=== PATIENT | female | born 1960 | race Caucasian/White ===

== ENCOUNTER 2018-06-13 04:22 | Emergency (ER) | payer MEDICAID ==
[~2018-06-13] VITALS: Ht 154.9 cm; Wt 55.1 kg
[~2018-06-13 04:22] MED LIST: TRAM50TA2 PO
[2018-06-13 04:30] VITALS: BP 148/72
[2018-06-13] MEDS ORDERED: TETanus/Pertussis (Acell)/Diphther VAC/PF (Tdap-Adult) 0.5ml syringe IM ONE (04:40)
[2018-06-13] MEDS ORDERED: bacitracin 15gm ointment TP ONE (04:40)
[2018-06-13] MEDS ORDERED: amox tr/potassium clavulanate 875/125mg TAB PO ONE (04:40)
[2018-06-13] MEDS ORDERED: ondansetron 4mg rapidly disintigrating tab PO ONE (04:40)
[2018-06-13] MEDS ORDERED: acetaminophen 325mg tablet PO ONE (04:45)
[2018-06-13] MEDS ORDERED: ketorolac trometh inj. 60 MG/2 ML VIAL IM ONE (04:45)
[2018-06-13] MEDS ORDERED: AMOX-580 PO (05:56)
== END 2018-06-13 06:27 | disposition home or self-care (01) ==
LOC: ER 04:22
DX: S51.812A Laceration without foreign body of left forearm, initial encounter (principal); S61.412A Laceration without foreign body of left hand, initial encounter; G89.29 Other chronic pain; F12.90 Cannabis use, unspecified, uncomplicated; Z98.890 Other specified postprocedural states; Z79.2 Long term (current) use of antibiotics; Z79.899 Other long term (current) drug therapy; Z88.6 Allergy status to analgesic agent; W54.0XXA Bitten by dog, initial encounter; Y93.89 Activity, other specified; Y92.89 Other specified places as the place of occurrence of the external cause; Y99.8 Other external cause status
CPT/HCPCS: 12002; 73090; 73120; 90471; 90715; 96372; 99284; J1885

== ENCOUNTER 2019-11-06 06:22 | Emergency (ER) | payer MEDICAID ==
[~2019-11-06] VITALS: Ht 154.9 cm; Wt 54.9 kg
[2019-11-06] MEDS ORDERED: ketorolac trometh. 30mg/ml inj. IM ONE (06:40)
[2019-11-06] MEDS ORDERED: HYDROcodone/acetaminophen 5mg/325mg tablet PO ONE (06:40)
[2019-11-06] MEDS ORDERED: HYDR-3965 PO (07:21)
[2019-11-06 07:41] VITALS: BP 134/89
== END 2019-11-06 07:44 | disposition home or self-care (01) ==
LOC: ER 06:23
DX: S30.0XXA Contusion of lower back and pelvis, initial encounter (principal); G89.29 Other chronic pain; F17.210 Nicotine dependence, cigarettes, uncomplicated; F15.90 Other stimulant use, unspecified, uncomplicated; Z98.890 Other specified postprocedural states; Z88.6 Allergy status to analgesic agent; Z79.899 Other long term (current) drug therapy; X58.XXXA Exposure to other specified factors, initial encounter; Y93.89 Activity, other specified; Y92.89 Other specified places as the place of occurrence of the external cause; Y99.8 Other external cause status
CPT/HCPCS: 72100; 96372; 99284; J1885

== ENCOUNTER 2019-11-19 05:56 | Emergency (ER) | payer MEDICAID ==
[~2019-11-19] VITALS: Ht 154.9 cm; Wt 55.1 kg
[~2019-11-19 05:56] MED LIST changes: +HYDR-3965 PO
[2019-11-19] MEDS ORDERED: ACET-3067 PO (06:38)
[2019-11-19] MEDS ORDERED: ketorolac trometh inj. 60 MG/2 ML VIAL IM ONE (06:40)
[2019-11-19] MEDS ORDERED: HYDROcodone/acetaminophen 5mg/325mg tablet PO ONE (06:40)
[2019-11-19 06:54] VITALS: BP 134/66
== END 2019-11-19 06:56 | disposition home or self-care (01) ==
LOC: ER 05:56
DX: M54.5 Low back pain (principal); G89.29 Other chronic pain; F12.90 Cannabis use, unspecified, uncomplicated; Z79.899 Other long term (current) drug therapy; Z88.8 Allergy status to other drugs, medicaments and biological substances
CPT/HCPCS: 96372; 99284; J1885